=== PATIENT | male | born 1980 | race Caucasian/White ===

== ENCOUNTER 2023-05-17 19:57 | Emergency (ER) | payer SELFPAY ==
[~2023-05-17] VITALS: Ht 172.7 cm; Wt 77.3 kg
[2023-05-17 20:41] LABS: BASO% 0.4 % (0-3); EOS% 0.4 % (0-8); HEMATOCRIT 41.8 % (39.0-50.0); HEMOGLOBIN 14.4 g/dl (14.0-18.0); IMMATURE GRANULOCYTES 0.1 % (0.0-5.0); LYMPH% 35.3 % (15-41); MEAN CELL VOLUME 93.5 fL CALC (80.0-100.0); MEAN CORPUSCULAR HGB 32.2 pG CALC (26.0-32.0); MEAN CORPUSCULAR HGB CONC 34.4 g/dL CAL (32.0-36.0); MONO% 7.1 % (2-13); NEUT# 5.87 thou/uL (1.82-7.42); NEUT% 56.7 % (42-76); RED BLOOD COUNT 4.47 mill/uL (4.70-6.10); RED CELL DISTRI WIDTH 12.7 % (11.5-15.5)
[2023-05-17 20:44] LABS: ALBUMIN 4.4 g/dL (3.2-5.0); ALKALINE PHOSPHATASE 57 u/l (38-126); ANION GAP 15 (6-22 (CALC)); BUN 22 mg/dL (9-20); BUN/CREATININE RATIO 18 (12-20 (CALC)); CARBON DIOXIDE 22 mmol/l (22-30); CHLORIDE 109 mmol/l (95-108); CREATININE 1.2 mg/dL (0.7-1.3); GFR FOR AFR.AMER. > 60 ML/MIN (>=60 (CALC)); GFR OTHER RACES > 60 ML/MIN (>=60 (CALC)); POTASSIUM 4.6 mmol/l (3.5-5.1); SGOT/AST 54 u/l (17-59); SODIUM 142 mmol/l (137-146); TOTAL PROTEIN 6.8 g/dL (6.3-8.2)
[2023-05-17 20:46] LABS: PROTHROMBIN TIME 10.4 SECONDS (9.0-12.5)
[2023-05-17 21:50] VITALS: BP 132/91
== END 2023-05-17 21:57 | disposition home or self-care (01) | DRG 923 ==
LOC: ED 19:57
PROVIDERS: Emergency Medicine
DX: T67.3XXA Heat exhaustion, anhydrotic, initial encounter (principal); X30.XXXA Exposure to excessive natural heat, initial encounter; Z53.20 Procedure and treatment not carried out because of patient's decision for unspecified reasons